=== PATIENT | female | born 1995 | race Caucasian/White ===

== ENCOUNTER 2017-08-02 12:50 | Inpatient (IN) ==
[2017-08-02 07:45] LABS: Basophils % 0.2 %; Eosinophils # 0.1 K/mcL (0.0-0.6); Eosinophils % 0.4 %; Hematocrit 35.7 % (35.3-44.9); Hemoglobin 12.4 g/dL (11.5-15.4); Immature Granulocytes % 0.7 % (0-4); Immature Platelets 4.5 % (1.1-6.1); Lymphocytes # 2.9 K/mcL (0.6-4.6); Lymphocytes % 14.6 %; Mean Corpuscular HGB Conc 34.7 g/dL (31.6-35.5); Mean Corpuscular Volume 83.6 fL (83.0-100.0); Mean Platelet Volume 10.3 fL (9.4-12.4); Monocytes # 0.8 K/mcL (0.0-1.3); Neutrophils # 15.7 K/mcL (1.6-8.9); Platelet Count 269 K/mcL (140-400); Red Blood Count 4.27 M/mcL (3.82-4.97); Segmented Neutrophils % 80.1 %
--- NOTE | 2017-08-02 08:24 | Anesthesia Evaluation PreOp ---
Date of Encounter: 08/02/17 Time of Encounter: 08:19 - Past History Planned Operation: GUILLERMO Cardiac History: Denies any Significant Hx Pulmonary History: Smoker (5pk/yr smoker) INSPECTOR WREATH History: Denies Any Significant HX Other Medical History: Denies Any Significant HX Anesthesia History: No Prior Anesthetic Complications, Past Anesthesia (wisdom teeth extraction) : Yes Alcohol Use: none Drug use: none Medications and Allergies Nitrofurantoin (BID) [Macrobid] 100 mg PO BID #14 capsule 12/09/16 [Rx] 3 Allergy/AdvReac Type Severity Reaction Status Date / Time No Known Allergies Allergy Verified 06/08/15 14:35 - Meds/Allergy Pre-op Review Medications Reviewed: Yes Allergies Reviewed: Yes Beta Blockers on Current Med List: No Anesthesia Results - Labs 08/02/17 07:38 Anesthesia Exam BP 124/81 P 71 R 16 T 97.6 Height: 227lb Weight: 5'4" NPO (# of Hours): 8 Pain Scale: 6 Pain Scale Used: Numeric (1 - 10) - HEENT Pupil (Motor): Pupils equal Mallampati: II Teeth: Normal Oral Opening: Greater than 3 - INSPECTOR WREATH LOC: Oriented INSPECTOR WREATH Motor: Normal RUE, Normal LUE, Normal RLE, Normal LLE, Normal Face INSPECTOR WREATH Sensory: Normal: RUE, LUE, RLE, LLE, Face - Cardiac Rhythm: Regular Murmur: None JVD: No Carotid Bruit: No - Pulmonary Breath Sounds: bilateral Clear Respiratory Effort: Symmetrical Anesthesia Assess/Plan ASA Score: 2 Modified Blunt Scale for Level of Consciousness: Cooperative, oriented, and tranquil Anesthetic Plan: Regional Autologous Blood: No Monitoring Plan: Standard Monitors Recovery Plan: Other
--- NOTE | 2017-08-02 08:44 | OB/GYN History & Physical ---
Date of Encounter: 08/02/17 Time of Encounter: 08:26 Assessment and Plan (1) 39 weeks gestation of Current visit: Yes Status: Acute at 39 weeks for eval of labor GBS Negative B+ Antibody Screen Negative Rubella: Immune Varicella: Immune Heb B: Non-Reactive RPR: Negative HIV: Negative Plan: -[place], FHT -VS per protocol -CBC, UDS -1L RL bolus -Epidural as requested -Zofran PRN Anticipate (2) Active labor Current visit: Yes Status: Acute (3) Tobacco use during in third trimester Current visit: Yes Status: Acute History of Present Illness Chief complaint: Labor Eval HPI: Ms. Rowley is a 22 year old female at 39 weeks 0 days who presents to L&D for labor eval. Her has been uncomplicated. She does still smoke cigarettes. She states that she is having contractions and has movement. She denies vaginal bleeding or leaking fluid. She has had a lot of thick discharge. She has occasional nausea, but denies any other symptoms. GBS Negative B+ Antibody Screen Negative Rubella: Immune Varicella: Immune Heb B: Non-Reactive RPR: Negative HIV: Negative Past Med Surg Social Fam HX - Past Medical History Medical history: no medical history Psychiatric history: anxiety, depression - Past Surgical History Surgical History: other - Social History Smoking Status: Former smoker Smokeless Tobacco Status: No Alcohol use: none Drug use: none - Family History Mother History Unknown: Yes Living Status: Still Living Hx Family Cardiac Disorders: Yes (hypertension) Hx Family Endocrine Disorder: Yes (diabetes) Obstetrical History - Pregnancies : 2 Para: 1 Term: 1 : 0 Ab's: 0 Livin Medications and Allergies Nitrofurantoin (BID) [Macrobid] 100 mg PO BID #14 capsule 12/09/16 [Rx] 3 Allergy/AdvReac Type Severity Reaction Status Date / Time No Known Allergies Allergy Verified 06/08/15 14:35 Review of System OB - Constitutional Constitutional ROS IM: no chills, no fatigue, no fever(s), no headache(s) - Nose, mouth, and throat Nose, mouth and throat: no dizziness, no headache(s), no nasal congestion, no neck pain - Cardiovascular Cardiovascular: no chest pain, no dyspnea, no edema, no lightheadedness - Respiratory Respiratory: no cough, no dyspnea, no wheezing - Gastrointestinal Gastrointestinal: nausea - Integumentary Integumentary: no rash Exam - Constitutional Constitutional: well developed, well nourished, no acute distress, average body habitus - HEENT HEENT: EOMI, PERRL, Normocephaly - Neck Neck exam: normal inspection, supple, trachea midline - Lungs Respiratory exam: wheezes - Cardiovascular Cardiovascular exam: RRR, +S1, +S2 - Abdomen Abdomen: Present: bowel sounds normal, gravid, non tender - Extremities Extremities exam: normal capillary refill, normal inspection, radial pulses palpable and symmetrical Deep Tendon Reflex Grade: 2+ Normal - Cervix Dilation: 6 - Uterus Uterus exam: Present: normal size, normal contour Results Result Diagrams: 08/02/17 07:38 Abnormal lab results WBC 19.6 K/mcL (4.3-11.1) H 08/02/17 07:38 Neutrophils # 15.7 K/mcL (1.6-8.9) H 08/02/17 07:38 All other labs normal. - VTE Reasons for not Prescribing Prophylaxis: Treatment not Indicated - Low risk for VTE
[2017-08-02 08:51] LABS: Amphetamine Screen,Urine Negative ng/mL (Cutoff=1000); Barbiturate Screen,Urine Negative ng/mL (Cutoff=200); Benzodiazepines Screen,Urine Negative ng/mL (Cutoff=200); Cannabinoid Screen,Urine Negative ng/mL (Cutoff = 50); Cocaine Screen,Urine Negative ng/mL (Cutoff= 300); Opiate Screen,Urine Negative ng/mL (Cutoff=300); Phencyclidine Screen,Urine Negative ng/mL (Cutoff=25)
--- NOTE | 2017-08-02 09:07 | Anesthesia Procedures ---
Date of Encounter: 08/02/17 Time of Encounter: 10:34 Procedures: Anesthesia - Epidural/Spinal Patient ID/Chart reviewed: Yes Patient examined: Yes OB Eval: Gestational age: 39 OB Eval: : 2 OB Eval: Hx Para: 1 OB Eval: Dilated at (cm): 6 OB Eval: Contractions: Non-stressed pattern Consent Obtained: Yes Supplemental Oxygen: None/Room Air Site Prep: Aseptic Technique, Sterile prep and drape, Povidone-Iodine 1% Patient position: upright Local Anesthetic: Lidocaine 1% Amount of Local Anesthetic used: 3 Touhy Needle Gauge: 18 Touhy Needle Depth (cm): 6 Catheter Depth at Skin (cm): 15 Test Dose (1.5% Lido + Epi): Volume given (mls): 3 Test Dose Result: Negative Loading Dose: 0.25% Marcaine (mls): 10 Loading Dose: Fentanyl (mcg): 100 Loading Dose Administered: Thru Catheter Infusion Med: 0.125% Bupivacaine w/ 2 mcg/ml Fentanyl Infusion Rate (mls/hr): [address]: Tegaderm, Tape Interspace Used: L4-L5 Loss of Resistance (SEAN): Yes Blood: No CSF: No Paresthesia: No Procedure: GUILLERMO placed 1st pass without any immediate noted complications. VSS throughout. Vitals + FHT's: 0834 BP 126/62 P 80 R 18 0900 BP 104/58 P 63 R 16 FHT 140's
[2017-08-02] MEDS: EPHEDrine 50 MG/ML VIAL IVP PRN ×2 (10:12→10:18)
--- NOTE | 2017-08-02 11:09 | OB Labor Progress Note ---
Date of Encounter: 08/02/17 Time of Encounter: 11:06 Labor Progress Note - Subjective Subjective: Pt resting comfortably in bed after epidural placement. Denies pain at this time. - Cervix Cervix: 6/100/-1 - Heart Tones Heart Tones: 120 bpm, moderate variability, +15x15 accels, no decels. Category I tracing. - [place]: 2-6 min - Interventions Interventions: SVE, AROM for small amount of clear fluid. - Plan Plan: Continued labor management.
[~2017-08-02 12:50] MED LIST: *HR* FentaNYL (PF) 100 MCG/2 ML VIAL EP ONE; *HR* FentaNYL (PF) 100 MCG/2 ML VIAL ONE; Bupivacaine-MPF 0.25% 10 ML VIAL EP ONE; Bupivacaine-MPF 0.25% 10 ML VIAL ONE; Epidural Premix (fent/bupiv) 110 ML EP ONE; Epidural Premix (fent/bupiv) 110 ML EP SCH; Famotidine 20 MG/2 ML VIAL IVP PRN; Naloxone 0.4 MG/ML INJ IVP PRN; Ondansetron 4 MG/2 ML VIAL IVP PRN; Ringers Solution, Lactated 1,000 ML IVC SCH; Ringers Solution, Lactated 1,000 ML ONE
--- NOTE | 2017-08-02 14:32 | OB/GYN Procedure Note ---
Delivery - Delivery Date: 08/02/17 Provider: Soraya Munoz (Marissa Fields [facility]) Intrapartum events: foul smelling fluid Delivery induction: none Delivery augmentation: rupture of membranes Delivery monitor: external FHT, external uterine Anesthesia: epidural Estimated Blood Loss: 300 - Infant (s) Infant A Infant Delivery Date: 08/02/17 Infant Delivery Time: 13:58 Presentation: vertex Position: SPEEDY Route of delivery: Gender: Female Viability: Viable Pounds: 5 Ounces: 11 Weight Gram: 2590 kg Shoulder Dystocia: not encountered Placenta: spontaneous Cord: nuchal cord, 3 umbilical vessels, nuchal reduced - Repair Episiotomy: none Laceration Description: None - Complications Delivery complications: none - Comments Comments: Under maternal efforts, of viable female infant over intact perineum. Nuchal cord x 1 reduced after delivery of the head. Boring to maternal abdomen for drying and stimulation. Cord clamped and cut after pulsation ceased. Placenta delivered spontaneously with foul odor noted. Perineum inspected and found to be completely intact. No meconium or shoulder dystocia encountered. EBL 300 ml. Mother and infant stable in room for 2 hour recovery. Placenta to pathology for examination. All counts correct.
[2017-08-02] MEDS ORDERED: Oxytocin 20 units/ LR 1000 mL 20 UNIT/1,000 ML BAG IVC ONE (16:23)
[2017-08-02] MEDS ORDERED: Oxytocin 20 units/ LR 1000 mL 20 UNIT/1,000 ML BAG IVC SCH (16:32)
[2017-08-02] MEDS ORDERED: Acetaminophen 325 MG TABLET PO PRN (16:32)
[2017-08-02] MEDS: Ibuprofen 600 MG TABLET PO PRN (20:46)
[2017-08-03] MEDS: Ibuprofen 600 MG TABLET PO PRN (05:19)
[2017-08-03 06:26] LABS: Basophils % 0.2 %; Eosinophils # 0.1 K/mcL (0.0-0.6); Eosinophils % 0.3 %; Hematocrit 31.1 % (35.3-44.9); Immature Granulocytes % 0.5 % (0-4); Lymphocytes # 4.7 K/mcL (0.6-4.6); Lymphocytes % 21.1 %; Mean Corpuscular HGB Conc 34.4 g/dL (31.6-35.5); Mean Corpuscular Hemoglobin 28.9 pg (28.0-33.3); Mean Corpuscular Volume 84.1 fL (83.0-100.0); Mean Platelet Volume 10.6 fL (9.4-12.4); Monocytes # 1.1 K/mcL (0.0-1.3); Monocytes % 4.8 %; Neutrophils # 16.2 K/mcL (1.6-8.9); Platelet Count 232 K/mcL (140-400); Red Cell Distribution Width 12.9 % (11.5-14.5); Segmented Neutrophils % 73.1 %
[2017-08-03 06:28] LABS: Hemoglobin 10.7 g/dL (11.5-15.4)
[2017-08-03 07:57] VITALS: BP 96/55
--- NOTE | 2017-08-03 08:34 | Discharge Summary ---
Date of Encounter: 08/03/17 Time of Encounter: 08:32 - Discharge Diagnosis (1) Vaginal delivery Priority: Primary Status: Acute Comments: Continue routine care discharge home today follow up with Dr. Linares in 4-6 weeks - Discharge Medications Prescriptions: Ibuprofen [Motrin] 600 mg PO Q6HR PRN #60 tablet PRN Reason: Cramping Home Medications: Ibuprofen [Motrin] 600 mg PO Q6HR PRN #60 tablet 08/03/17 [Rx] Vit/FA 1 each PO DAILY tablet 08/03/17 [Rx] Allergies/Adverse Reactions: 3 Allergy/AdvReac Type Severity Reaction Status Date / Time No Known Allergies Allergy Verified 06/08/15 14:35 Data Procedures and tests throughout hospitalization: Laboratory Tests 08/02/17 08/02/17 08/03/17 07:38 07:38 06:02 WBC 19.6 H 22.2 H RBC 4.27 3.70 L Hgb 12.4 10.7 L D Hct 35.7 31.1 L MCV 83.6 84.1 MCH 29.0 28.9 MCHC 34.7 34.4 RDW 13.0 12.9 Plt Count 269 232 MPV 10.3 10.6 Immature Gran % 0.7 0.5 Seg Neutrophils % 80.1 73.1 Lymphocytes % 14.6 21.1 Monocytes % 4.0 4.8 Eosinophils % 0.4 0.3 Basophils % 0.2 0.2 Neutrophils # 15.7 H 16.2 H Lymphocytes # 2.9 4.7 H Monocytes # 0.8 1.1 Eosinophils # 0.1 0.1 Basophils # 0.0 0.0 Immature Plt Fraction 4.5 Urine Opiates Screen Negative Ur Barbiturates Screen Negative Ur Phencyclidine Scrn Negative Ur Amphetamines Screen Negative U Benzodiazepines Scrn Negative Urine Cocaine Screen Negative U Marijuana (THC) Screen Negative Labs on day of discharge: Labs from last 24 hours 08/03/17 08/02/17 06:02 07:38 WBC 22.2 H RBC 3.70 L Hgb 10.7 L D Hct 31.1 L MCV 84.1 MCH 28.9 MCHC 34.4 RDW 12.9 Plt Count 232 MPV 10.6 Immature Gran % 0.5 Seg Neutrophils % 73.1 Lymphocytes % 21.1 Monocytes % 4.8 Eosinophils % 0.3 Basophils % 0.2 Neutrophils # 16.2 H Lymphocytes # 4.7 H Monocytes # 1.1 Eosinophils # 0.1 Basophils # 0.0 Urine Opiates Screen Negative Ur Barbiturates Screen Negative Ur Phencyclidine Scrn Negative Ur Amphetamines Screen Negative U Benzodiazepines Scrn Negative Urine Cocaine Screen Negative U Marijuana (THC) Screen Negative Date of admission: 08/02/17 12:50 Primary care physician: Karl Connolly CNP Consults: 08/02/17 16:32 Consult to Director Life Sales [CONS] Routine Comment: Vaginal delivery, consult needed Discharging clinician: Cata Macario Anticipated date of discharge: 08/03/17 - Patient Status Disposition: Home, Self-Care Condition: Good Functional capacity at discharge: independent ambulation - Discharge Instructions Follow Up With: Karl Connolly CNP [Primary Care Provider] - Michelle Linares DO [Partnered Physician] - - Diet and Activity Activity: increase activity as tolerated Diet: regular diet Hospital Course Delivery: Episiotomy: none Other procedures: none complications: none Discharge diagnosis: IUP at term delivered [place] baby: female (bottle feeding) Time Attestation: Total time spent providing and/or coordinating discharge services: Time Spent: Less than 30 minutes Exam - Constitutional Vitals: Temp Pulse Resp BP Pulse Ox 97.8 F 64 16 96/55 97 08/03/17 07:30 08/03/17 07:30 08/03/17 07:30 08/03/17 07:30 08/03/17 05:00 General appearance IM: A&O X 3, pleasant, answers questions appropriately - Respiratory Respiratory exam: Present: CTAB - Cardiovascular Cardiovascular exam IM: Present: RRR, +S1, +S2 - GI/Abdominal GI/Abdominal exam IM: normal bowel sounds - Uterine Tone: Firm Uterus Position: 1 Finger Below Umbilicus, Midline - Extremities Exam Extremities exam IM: Present: full ROM, normal capillary refill, normal inspection - Neurological Exam Neurological exam: alert, oriented X3, reflexes normal
[2017-08-03] MEDS ORDERED: Prenatal Vit/FA 1 EACH TABLET PO SCH (09:00)
== END 2017-08-03 16:38 | disposition home or self-care (01) | DRG 775 ==
LOC: 1NENULAB → 1NENUOBS 16:40
PROVIDERS: ADMIT Obstetrics & Gynecology; ATTEND Obstetrics & Gynecology

== ENCOUNTER 2019-02-26 16:20 | Observation (INO) ==
--- NOTE | 2019-02-26 18:11 | OB/GYN Progress Note ---
Date of Encounter: 02/26/19 Time of Encounter: 18:10 - Assessment and Plan (1) 37 weeks gestation of Current Visit: Yes Status: Acute (2) Encounter for suspected PROM, with rupture of membranes not found Current Visit: Yes Status: Acute Speculum exam shows copious thick white discharge, negative pooling, negative ferning. Vaginosis sent Patient discharged with labor and when to return to triage precautions. Patient verbalizes understanding Subjective - Subjective Interval history: 37+0 weeks gestation presents to triage with complaints of leaking of fluid over the last 3 days. Patient states she has noticed intermittent wetness in her underwear over the last 3 days. Reports good movement, denies contractions vaginal bleeding. Antepartum ROS: loss of fluid, movement normal, no vaginal bleeding, no contractions Objective - Vital Signs Vital Signs: Intake and Output 02/26/19 02/26/19 02/26/19 07:59 15:59 23:59 Other: Weight 98.9 kg Patient Weight 02/26/19 23:59 Weight 98.9 kg - Exam FHR: auscultation normal FHR comments: Baseline 135 Abdomen: Present: soft, gravid Cervical dilation: /-2
[2019-02-26 19:09] LABS: Gardnerella DNA Not Detected (Not Detect); Trichomonas DNA DETECTED (Not Detect)
[2019-02-26 19:10] LABS: Candida DNA DETECTED (Not Detect)
[2019-02-26 20:14] LABS: Amphetamine Screen,Urine Positive ng/mL (Cutoff=1000); Barbiturate Screen,Urine Negative ng/mL (Cutoff=200); Benzodiazepines Screen,Urine Negative ng/mL (Cutoff=200); Cannabinoid Screen,Urine Negative ng/mL (Cutoff = 50); Cocaine Screen,Urine Negative ng/mL (Cutoff= 300); Opiate Screen,Urine Negative ng/mL (Cutoff=300); Phencyclidine Screen,Urine Negative ng/mL (Cutoff=25)
== END 2019-02-26 18:05 | disposition home or self-care (01) ==
LOC: 1NENULAB
PROVIDERS: ADMIT Advanced Practice Midwife; ATTEND Advanced Practice Midwife

== ENCOUNTER 2021-12-15 08:00 | Observation (INO) ==
[2021-12-15] MEDS ORDERED: Ketorolac 30 MG/ML VIAL IVP PRN (10:06)
[2021-12-15] MEDS ORDERED: Ondansetron 4 MG/2 ML VIAL IVP PRN ×3 (10:06→19:44)
[2021-12-15] MEDS ORDERED: *HR* OxyCODONE/APAP 5/325 TABLET PO PRN ×2 (10:06→19:44)
[2021-12-15] MEDS ORDERED: Piperacillin/Tazobactam 3.375 GM in 0.9 % Sodium Chloride Mini Bag 100 ML IVPB SCH (16:00)
[2021-12-15] MEDS ORDERED: *HR* FentaNYL (PF) 100 MCG/2 ML VIAL ONE (16:51)
[2021-12-15] MEDS ORDERED: *HR* Midazolam HCl 2 MG/2 ML VIAL ONE (16:51)
[2021-12-15] MEDS ORDERED: *HR* Propofol 200 MG/20 ML VIAL IVP ONE ×2 (16:51→17:51)
[2021-12-15] MEDS ORDERED: *HR* Succinylcholine 200 MG/10 ML VIAL IVP ONE (16:57)
[2021-12-15] MEDS ORDERED: Lidocaine HCL 4 ML Topical Solution (Laryng-O-Jet Kit Sterile Pak) TP ONE (16:57)
[2021-12-15] MEDS ORDERED: Ondansetron 4 MG/2 ML VIAL ONE (16:57)
[2021-12-15] MEDS ORDERED: *HR* Rocuronium Bromide 50 MG/5 ML VIAL ONE (16:57)
[2021-12-15] MEDS ORDERED: Lidocaine -MPF 2% 5 ML VIAL ONE ×2 (16:57→17:50)
[2021-12-15] MEDS ORDERED: *HR* HYDROmorphone PF 0.5 MG/0.5 ML SYRINGE IVP PRN (17:03)
[2021-12-15] MEDS ORDERED: Acetaminophen IV 1,000 MG/100 ML BAG IVPB PRN (17:03)
[2021-12-15] MEDS ORDERED: EPHEDrine 50 MG/ML VIAL ONE (17:49)
[2021-12-15] MEDS ORDERED: *HR* HYDROMORPHONE 2 MG/ML VIAL ONE (17:57)
[2021-12-15] MEDS: Piperacillin/Tazobactam 3.375 GM in 0.9 % Sodium Chloride Mini Bag 100 ML IVPB SCH (23:08)
[2021-12-16] MEDS: Piperacillin/Tazobactam 3.375 GM in 0.9 % Sodium Chloride Mini Bag 100 ML IVPB SCH ×3 (06:40→23:01)
[2021-12-16 07:14] LABS: Basophils % 0.1 %; Hematocrit 35.1 % (35.3-44.9); Hemoglobin 11.7 g/dL (11.5-15.4); Immature Granulocytes % 0.6 % (0-4); Lymphocytes # 0.6 K/mcL (0.6-4.6); Lymphocytes % 3.2 %; Mean Corpuscular HGB Conc 33.3 g/dL (31.6-35.5); Mean Corpuscular Hemoglobin 28.8 pg (28.0-33.3); Mean Corpuscular Volume 86.5 fL (83.0-100.0); Mean Platelet Volume 12.3 fL (9.4-12.4); Monocytes # 0.5 K/mcL (0.0-1.3); Monocytes % 2.7 %; Platelet Count 222 K/mcL (140-400); Red Blood Count 4.06 M/mcL (3.82-4.97); Red Cell Distribution Width 14.2 % (11.5-14.5); Segmented Neutrophils % 93.4 %; White Blood Count 18.2 K/mcL (4.3-11.1)
[2021-12-16] MEDS: Ketorolac 30 MG/ML VIAL IVP PRN ×2 (13:35→19:32)
[2021-12-17 06:44] VITALS: BP 105/71; PULSE 65; TEMP 98.8; O2SAT 100
[2021-12-17 07:28] LABS: BUN/Creatinine Ratio 10 (6-26); Blood Urea Nitrogen 8 mg/dL (6-20); Calcium 8.4 mg/dL (8.6-10.3); Carbon Dioxide 28 mEq/L (23-29); Chloride 102 mEq/L (98-107); Glucose 80 mg/dL (70-105); Osmolality,Calculated 279 (280-300); Potassium 3.4 mEq/L (3.5-5.1); Sodium 136 mEq/L (136-145); eGFR For African Americans > 60 (> 60); eGFR For Non-African Americans > 60 (> 60)
[2021-12-17] MEDS: Piperacillin/Tazobactam 3.375 GM in 0.9 % Sodium Chloride Mini Bag 100 ML IVPB SCH (07:38)
== END 2021-12-17 13:22 | disposition home or self-care (01) ==
LOC: 3BNU
PROVIDERS: ADMIT Surgery; ATTEND Surgery